=== PATIENT | male | born 1980 | race Caucasian/White ===

== ENCOUNTER 2021-01-08 19:17 | Inpatient (IN) | payer OTHER ==
[~2021-01-08] VITALS: Ht 188 cm; Wt 152.0 kg
[~2021-01-08 19:17] MED LIST: ALDACTONE 25MG25 MG PO; AMIODARONE HCL200 MG PO; BRILINTA90 MG PO; DIABETA 5 MG TAB5 MG PO; ECOTRIN81 MG PO; ENTRESTO 24 MG1 EACH PO; ENTRESTO 49 MG1 EACH PO; FISH OIL 1,0001 EACH PO; GARLIC500 MG PO; GLUCOPHAGE1000 MG PO; LIPITOR TAB 2020 MG PO; METOPROLOL SUC100 MG PO; NEURONTIN 300300 MG PO; NITROSTAT0.4 MG SL; OMEPRAZOLE20 M2 PO; PEPCID20 MG PO; TOPROL XL100 MG PO
[2021-01-08 19:45] LABS: HEMOGLOBIN 14.5 gm/dl (14.0-17.5); RED BLOOD COUNT 5.54 M/UL (4.20-5.50)
[2021-01-08 20:07] LABS: BUN/CREATININE RATIO 13 (0-10)
[2021-01-09] MEDS ORDERED: AMIODARONE HCL100 MG PO (00:15)
[2021-01-09 02:21] LABS: HEMOGLOBIN 14.4 gm/dl (14.0-17.5); RED BLOOD COUNT 5.5 M/UL (4.20-5.50); WHITE BLOOD COUNT 18.2 K/UL (4.5-11.0)
[2021-01-09 02:35] LABS: BORDETELLA PARAPERTUSSIS Not Detected (Not Detectd); BORDETELLA PERTUSSIS Not Detected (Not Detectd); CHLAMYDIA PNEUMONIAE Not Detected (Not Detectd); CORONAVIRUS HKU1 Not Detected (Not Detectd); CORONAVIRUS NL63 Not Detected (Not Detectd); CORONAVIRUS OC43 Not Detected (Not Detectd); CORONOAVIRUS 229E Not Detected (Not Detectd); HUMAN METAPNEUMOVIRUS Not Detected (Not Detectd); HUMAN RHINOVIRUS/ENTEROVIRUS Not Detected (Not Detectd); INFLUENZA A Not Detected (Not Detectd); INFLUENZA B Not Detected (Not Detectd); MYCOPLASMA PNEUMONIAE Not Detected (Not Detectd); PARAINFLUENZA VIRUS 1 Not Detected (Not Detectd); PARAINFLUENZA VIRUS 2 Not Detected (Not Detectd); PARAINFLUENZA VIRUS 3 Not Detected (Not Detectd); PARAINFLUENZA VIRUS 4 Not Detected (Not Detectd); RESPIRATORY SYNCYTIAL VIRUS Not Detected (Not Detectd)
[2021-01-09 04:56] LABS: SARS-CoV-2 NOT DETECTED (Not Detectd)
[2021-01-09] MEDS ORDERED: CLARITIN10 MG PO (11:14)
[2021-01-09] MEDS ORDERED: PEPCID20 MG PO (11:14)
[2021-01-09] MEDS ORDERED: ENTRESTO 97 MG1 EACH PO (11:15)
[2021-01-09] MEDS ORDERED: ALDACTONE 25MG25 MG PO (11:15)
[2021-01-09] MEDS ORDERED: LANTUS SOL100 UNIT/1 SC (11:15)
[2021-01-09] MEDS ORDERED: TOPROL XL100 MG PO (11:16)
[2021-01-09] MEDS ORDERED: POTASSIUM CHLO10 MEQ PO (11:16)
[2021-01-09] MEDS ORDERED: CEPHALEXIN500 M1 PO (11:18)
[2021-01-09] MEDS ORDERED: BACTRIM DS TAB1 EACH PO (11:18)
[2021-01-09 18:11] LABS: RED BLOOD COUNT 4.46 M/UL (4.20-5.50); WHITE BLOOD COUNT 11.9 K/UL (4.5-11.0)
[2021-01-09 18:12] LABS: HEMOGLOBIN 11.6 gm/dl (14.0-17.5)
[2021-01-09] MEDS ORDERED: LASIX20 MG PO (20:55)
[2021-01-12 14:09] LABS: ORGANISM ID Not indicated. (.); SPECIMEN SOURCE Urine (.); STREPTOCOCCUS PNEUMONIAE AG Negative (Negative)
== END 2021-01-09 19:00 | disposition short-term general hospital (02) | DRG 871 ==
LOC: ER1 19:17 → CCU 23:02 → CDU 23:02 → CCU 01-09 00:05
PROVIDERS: Emergency Medicine; Internal Medicine; Internal Medicine Nephrology; ADMIT Internal Medicine
PROC: 5A1935Z Respiratory Ventilation, Less than 24 Consecutive Hours (ICD-10-PCS; principal; 2021-01-08)
PROC: 0BH17EZ Insertion of Endotracheal Airway into Trachea, Via Natural or Artificial Opening (ICD-10-PCS; 2021-01-08)
PROC: 05HM33Z Insertion of Infusion Device into Right Internal Jugular Vein, Percutaneous Approach (ICD-10-PCS; 2021-01-09)
PROC: B543ZZA Ultrasonography of Right Jugular Veins, Guidance (ICD-10-PCS; 2021-01-09)
DX: A41.9 Sepsis, unspecified organism (principal); R65.21 Severe sepsis with septic shock; J18.9 Pneumonia, unspecified organism; G93.41 Metabolic encephalopathy; R57.0 Cardiogenic shock; I50.21 Acute systolic (congestive) heart failure; J80 Acute respiratory distress syndrome; N17.0 Acute kidney failure with tubular necrosis; I13.0 Hypertensive heart and chronic kidney disease with heart failure and stage 1 through stage 4 chronic kidney disease, or unspecified chronic kidney disease; E87.1 Hypo-osmolality and hyponatremia; L02.214 Cutaneous abscess of groin; E87.2 Acidosis; Z95.810 Presence of automatic (implantable) cardiac defibrillator; I25.10 Atherosclerotic heart disease of native coronary artery without angina pectoris; Z87.891 Personal history of nicotine dependence; I25.2 Old myocardial infarction; K21.9 Gastro-esophageal reflux disease without esophagitis; Z88.8 Allergy status to other drugs, medicaments and biological substances; I25.5 Ischemic cardiomyopathy; E78.5 Hyperlipidemia, unspecified; E66.01 Morbid (severe) obesity due to excess calories; Z20.822 Contact with and (suspected) exposure to COVID-19; E87.5 Hyperkalemia; N18.30 Chronic kidney disease, stage 3 unspecified; E11.22 Type 2 diabetes mellitus with diabetic chronic kidney disease; E87.70 Fluid overload, unspecified; Z68.30 Body mass index [BMI] 30.0-30.9, adult; Z79.4 Long term (current) use of insulin
CPT/HCPCS: 31500; 36415; 36600; 71045; 80048; 80053; 80307; 81001; 82009; 82140; 82550; 82553; 82570; 82803; 82962; 83036; 83605; 83690; 83735; 83874; 83880; 84100; 84133; 84156; 84300; 84439; 84443; 84484; 85025; 85027; 85610; 85730; 86618; 86738; 87040; 87070; 87205; 87278; 87633; 87899; 89050; 93005; 94002; 94003; 94664; 94760; 96374; 96375; 99285; C1752; C9113; G0480; J0610; J0692; J1250; J1335; J1650; J1940; J2250; J2310; J2704; J3370; J7030; J7040; J7070; U0002

== ENCOUNTER → 2022-03-08 | Outpatient (CLI) | payer OTHER ==
[~2022-03-08] MED LIST changes: +AMIODARONE HCL100 MG PO; +BACTRIM DS TAB1 EACH PO; +CEPHALEXIN500 M1 PO; +CLARITIN10 MG PO; +ENTRESTO 97 MG1 EACH PO; +LANTUS SOL100 UNIT/1 SC; +LASIX20 MG PO; +POTASSIUM CHLO10 MEQ PO
== END ==
LOC: EXRD 12:58
DX: R60.9 Edema, unspecified (principal)
CPT/HCPCS: 93971